=== PATIENT | male | born 1990 | race Two or more races ===

== ENCOUNTER 2016-05-08 20:21 | Emergency (ER) | payer SELFPAY ==
[~2016-05-08] VITALS: Ht 165.1 cm; Wt 54.4 kg
[2016-05-08 20:22] VITALS: BP 124/76
[2016-05-08] MEDS ORDERED: Lidocaine 2% Visc 15ml soln ORAL ONE (20:30)
[2016-05-08] MEDS ORDERED: Mylanta II UD 30ml ORAL ONE (20:30)
[2016-05-08] MEDS ORDERED: Dicyclomine HCl 10mg/5ml oral soln ORAL ONE (20:30)
[2016-05-08 21:00] VITALS: BP 99/54
[2016-05-08 21:09] LABS: APPEARANCE,URINE SLIGHTLY CLOUDY; BASOPHILS % (AUTO) 1.1 % (0.0-2.0); EOSINOPHILS % (AUTO) 0.8 % (0.0-3.0); KETONES,URINE NEGATIVE (NEGATIVE); LEUKOCYTE ESTERASE ,URINE NEGATIVE (NEGATIVE); MEAN CORPUSCULAR HEMOGLOBIN 31.4 PG (27.0-31.0); MEAN CORPUSCULAR HGB CONC 32.6 G/DL (32.0-36.0); MEAN CORPUSCULAR VOLUME 97 FL (80-99); MEAN PLATELET VOLUME 5.8 FL (6.5-10.1); MONOCYTES % (AUTO) 5.4 % (1.0-10.0); NEUTROPHILS % (AUTO) 74.7 % (45.0-75.0); NITRITE,URINE NEGATIVE (NEGATIVE); PH,URINE 9 (4.5-8.0); PLATELET COUNT 305 K/UL (150-450); PROTEIN,URINE 2+ (NEGATIVE); RED BLOOD COUNT 4.67 M/UL (4.70-6.10); RED CELL DISTRIBUTION WIDTH 11.6 % (11.6-14.8); UROBILINOGEN,URINE NORMAL MG/DL (0.0-1.0); WHITE BLOOD COUNT 9.6 K/UL (4.8-10.8)
[2016-05-08 21:22] LABS: AMORPHOUS SEDIMENT,UR MANY /LPF; BACTERIA,URINE MODERATE /HPF; RBC,URINE 0 /HPF (0 - 0); WBC,URINE 0 /HPF (0 - 0)
[2016-05-08 21:35] LABS: ALANINE AMINOTRANSFERASE 13 U/L (3-41); ALBUMIN/GLOBULIN RATIO 1.7 (1.0-2.7); ANION GAP 16 (5-15); ASPARTATE AMINO TRANSFERASE 17 U/L (5-40); CALCIUM 9.4 mg/dL (8.6-10.2); CARBON DIOXIDE 29 mEQ/L (20-30); CHLORIDE 100 mEQ/L (98-107); CREATININE 0.9 mg/dL (0.7-1.2); GLOMERULAR FILTRATION RATE > 60 mL/min (>60); HEMOLYSIS 7; LIPASE 19 U/L (< 60); SODIUM 145 mEQ/L (135-145); TOTAL PROTEIN 7.4 g/dL (6.6-8.7)
[2016-05-08 22:00] VITALS: BP 101/83
--- NOTE | 2016-05-08 22:36 | Emergency Room Report ---
History of Present Illness General Chief Complaint: Abdominal Pain Source: Patient Present Illness HPI Patient presents with vomiting and epigastric pain. This has been intermittent for several months. He rates the pain at 8/10. It is constant today and worsened. He is taking prilosec and states it has not been helping. The pain is aching and burning. He moves his bowels intermittently. The stools have been hard. He took a lot of prune juice earlier today and this is what he vomited tonight. He did drink alcohol 3 nights ago. He states he is under much stress in his family. He has trouble sleeping. He denies SI or HI. He is not taking medication for the stress and has not sought help specifically for this. No hematemesis, coffee grounds, melena, hematochezia. No dysuria. No dizziness. No rashes. No headache. Prior medical treatment for abdominal pain. No endoscopy. Most recently told problem is constipation. Allergies: Coded Allergies: No Known Allergies (Unverified , 05/08/16) Patient History Past Medical History: see triage record Social History: Reports: alcohol use, smoking Social History Narrative with children Reviewed Nursing Documentation: PMH: Agreed, PSxH: Agreed Review of Systems All Other Systems: negative except mentioned in HPI Physical Exam Vital Signs Date Time Temp Pulse Resp B/P Pulse Ox O2 Delivery O2 Flow Rate FiO2 05/08/16 20:15 98.2 70 18 124/76 97 Room Air Sp02 EP Interpretation: reviewed, normal General Appearance: well appearing, no apparent distress, GCS 15 Head: normocephalic Eyes: bilateral eye PERRL, bilateral eye normal inspection ENT: moist mucus membranes Neck: supple Respiratory: lungs clear, normal breath sounds Cardiovascular #1: regular rate, rhythm Cardiovascular #2: 2+ radial (R) Gastrointestinal: normal inspection, normal bowel sounds, no mass, non- distended, no guarding, tenderness - epigastric, scaphoid Musculoskeletal: back normal, gait/station normal, normal range of motion Neurologic: alert, oriented x3, grossly normal Psychiatric: depressed affect Skin: normal inspection, warm/dry Medical Decision Making Diagnostic Impression: Primary Impression: Abdominal pain Qualified Codes: R10.13 - Epigastric pain Additional Impressions: Vomiting Qualified Codes: R11.2 - Nausea with vomiting, unspecified Stress ER Course Patient presents with abdominal pain and vomiting. Ddx: psychogenic vomiting, GERD, gastritis, pancreatitis, constipation amongst others. By history, urgent evaluation with labs, abdominal films. Treatment with zofran, pepcid and cocktail. Labs unremarkable (normal lipase). Abdominal film NSBGP. Improved with treatment. Discussed treatment plan. Suggested GI consult as well as psychiatric/psychologic help. Patient stable for outpatient observation and treatment. Laboratory Tests Test 05/08/16 20:35 White Blood Count 9.6 K/UL (4.8-10.8) Red Blood Count 4.67 M/UL (4.70-6.10) L Hemoglobin 14.7 G/DL (14.2-18.0) Hematocrit 45.1 % (42.0-52.0) Mean Corpuscular Volume 97 FL (80-99) Mean Corpuscular Hemoglobin 31.4 PG (27.0-31.0) H Mean Corpuscular Hemoglobin Concent 32.6 G/DL (32.0-36.0) Red Cell Distribution Width 11.6 % (11.6-14.8) Platelet Count 305 K/UL (150-450) Mean Platelet Volume 5.8 FL (6.5-10.1) L Neutrophils (%) (Auto) 74.7 % (45.0-75.0) Lymphocytes (%) (Auto) 18.0 % (20.0-45.0) L Monocytes (%) (Auto) 5.4 % (1.0-10.0) Eosinophils (%) (Auto) 0.8 % (0.0-3.0) Basophils (%) (Auto) 1.1 % (0.0-2.0) Urine Color Pale yellow Urine Appearance Slightly cloudy Urine pH 9 (4.5-8.0) Urine Specific [place] 1.015 (1.005-1.035) Urine Protein 2+ (NEGATIVE) H Urine Glucose (UA) Negative (NEGATIVE) Urine Ketones Negative (NEGATIVE) Urine Occult Blood Negative (NEGATIVE) Urine Nitrite Negative (NEGATIVE) Urine Bilirubin Negative (NEGATIVE) Urine Urobilinogen Normal MG/DL (0.0-1.0) Urine Leukocyte Esterase Negative (NEGATIVE) Urine RBC 0 /HPF (0 - 0) Urine WBC 0 /HPF (0 - 0) Urine Squamous Epithelial Cells None /LPF (NONE/OCC) Urine Amorphous Sediment Many /LPF (NONE) H Urine Bacteria Moderate /HPF (NONE) H Sodium Level 145 mEQ/L (135-145) Potassium Level 4.0 mEQ/L (3.4-4.9) Chloride Level 100 mEQ/L (98-107) Carbon Dioxide Level 29 mEQ/L (20-30) Anion Gap 16 (5-15) H Blood Urea Nitrogen 4 mg/dL (7-23) L Creatinine 0.9 mg/dL (0.7-1.2) Estimate Glomerular Filtration Rate > 60 mL/min (>60) Glucose Level 103 mg/dL (74-106) Calcium Level 9.4 mg/dL (8.6-10.2) Total Bilirubin 0.2 mg/dL (0.0-1.2) Aspartate Amino Transferase (AST) 17 U/L (5-40) Alanine Aminotransferase (ALT) 13 U/L (3-41) Alkaline Phosphatase 77 U/L (40-129) Total Protein 7.4 g/dL (6.6-8.7) Albumin 4.7 g/dL (3.5-5.2) Globulin 2.7 g/dL Albumin/Globulin Ratio 1.7 (1.0-2.7) Lipase 19 U/L (< 60) Other X-Ray Diagnostic Results Other X-Ray Diagnostic Results : X-Ray Ordered: abd EP Interpretation: Yes Findings: other - no SBO, NSBGP, no masses Number of Views: 1 Last Vital Signs Date Time Temp Pulse Resp B/P Pulse Ox O2 Delivery O2 Flow Rate FiO2 05/08/16 23:19 98.2 86 16 101/83 99 Room Air Status: improved Disposition: HOME, SELF-CARE Condition: Improved Scripts Hydroxyzine Pamoate (VISTARIL) 25 Mg Capsule 25 MG PO Q8HR Y for anxiety, #14 CAP Prov: Casey Diaz M.D. 05/08/16 Ondansetron Odt* (ZOFRAN ODT*) 4 Mg Tab.rapdis 4 MG ORAL Q6H Y for Nausea & Vomiting, #6 TAB 1 Refill Prov: Casey Diaz M.D. 05/08/16 Referrals: NOT CHOSEN IPA/,REFERRING (PCP) Casey Diaz M.D. May 08, 2016 22:36
[2016-05-08] MEDS ORDERED: VISTARIL25 M1 PO (22:38)
[2016-05-08] MEDS ORDERED: ZOFRAN ODT4 MG ORAL (22:38)
[2016-05-08 23:19] VITALS: BP 101/83
--- NOTE | 2016-05-09 11:05 | Diagnostic Imaging Report ---
Indication: Abdominal pain Technique: Supine view of the abdomen Comparison: none Findings: Unremarkable bowel gas pattern. No unusual masses or calcifications. Impression: Negative
== END 2016-05-08 23:21 | disposition home or self-care (01) ==
LOC: EDBD 20:21 → EMR 21:05
DX: R10.13 Epigastric pain (principal); R11.2 Nausea with vomiting, unspecified; F43.9 Reaction to severe stress, unspecified; F17.200 Nicotine dependence, unspecified, uncomplicated
CPT/HCPCS: 36415; 74000; 80053; 81003; 83690; 85025; 87086; 96360; 96374; 99284; J2405